=== PATIENT | male | born 1965 | race Caucasian/White ===

== ENCOUNTER 2019-10-13 22:05 | Emergency (ER) | payer BC ==
[~2019-10-13] VITALS: Ht 170.2 cm; Wt 122.7 kg
[2019-10-13 22:49] LABS: BASO # 0.1 (0.0-0.2); BASO % 0.4 % (0.0-2.0); EOS # 0.2 (0.0-0.7); EOS % 1.7 % (0-4.0); GRAN # 11.1 (1.4-6.5); GRAN % 89.4 % (42.2-75.2); HEMATOCRIT 46.5 % (42.0-52.0); HEMOGLOBIN 15.9 g/dl (13.5-18.0); LYMPH # 0.5 (1.2-3.4); LYMPH % 4.3 % (20.0-51.0); MEAN CELL VOLUME 95 fl (80.0-100.0); MEAN CORPUSCULAR HEMOGLOBIN 32 pg (27.0-31.0); MEAN CORPUSCULAR HGB CONC 34 g/dl (33.0-37.0); MEAN PLATELET VOLUME 10.1 fl (7.4-10.4); MONO # 0.5 (0.1-0.6); MONO % 3.9 % (1.7-9.3); PLATELET COUNT 236 K/mm3 (130-400); RED BLOOD COUNT 4.91 M/mm3 (4.20-5.60); REDCELL DISTRIBUTION WIDTH-CV 12.8 % (11.5-14.5)
[2019-10-13 23:35] LABS: ALBUMIN 4.6 gm/dL (3.5-5.0); BILIRUBIN,TOTAL 0.7 mg/dL (0.0-1.0); CREATININE, serum 0.88 (0.66-1.25); POTASSIUM 4.1 mmol/L (3.4-5.0); TOTAL PROTEIN 8.4 gm/dL (6.4-8.2)
[2019-10-14 00:02] VITALS: TEMP 100.6
[2019-10-14] MEDS ORDERED: NEURONTIN300 MG/CAP PO ×2 (01:34→01:35)
[2019-10-14] MEDS ORDERED: ASPIRIN 32325 MG/TAB PO (01:35)
[2019-10-14] MEDS ORDERED: HUMULIN R U SQ (01:35)
[2019-10-14] MEDS ORDERED: GLUCOPHAGE500 MG/TAB PO (01:35)
[2019-10-14] MEDS ORDERED: HYZAAR 25 MG-101 TAB PO (01:36)
[2019-10-14 03:03] LABS: COLLECTION METHOD CLEAN CATCH
[2019-10-14 03:20] LABS: MUCOUS Present /lpf; PH 5 (5-8); SQUAMOUS EPITHELIAL 0-2 /hpf; URINE APPEARANCE Clear; URINE BACTERIA None Seen /hpf; URINE BILIRUBIN Negative (NEGATIVE); URINE BLOOD Negative (NEGATIVE); URINE COLOR Yellow; URINE GLUCOSE 1+ (NEGATIVE); URINE KETONE Negative (NEGATIVE); URINE LEUKOCYTE ESTERASE Negative (NEGATIVE); URINE NITRATE Negative (NEGATIVE); URINE PROTEIN(semi-quant) Negative (NEGATIVE); URINE RBC 0-2 /hpf; URINE UROBILINOGEN Negative (NEGATIVE)
[2019-10-14 05:00] VITALS: BP 117/69; PULSE 117
== END 2019-10-14 05:10 | disposition left against medical advice (07) ==
LOC: COL.ER 22:05
PROVIDERS: Emergency Medicine
DX: R50.9 Fever, unspecified (principal); R05 Cough; R10.10 Upper abdominal pain, unspecified; E11.9 Type 2 diabetes mellitus without complications; Z90.89 Acquired absence of other organs
CPT/HCPCS: A4216; J0696; J0780; J1885; J2405; J3010; J7030; Q9967